=== PATIENT | female | born 1970 | race Caucasian/White ===

== ENCOUNTER 2022-03-06 22:06 | Emergency (ER) | payer BC ==
[2022-03-06] MEDS ORDERED: Mag-Al Plus 1200 MG/1200 MG/120 MG/30 ML UDCUP ONE (22:39)
[2022-03-06] MEDS ORDERED: Lidocaine Viscous Sol 2% 15 ml UD Cup ONE (22:39)
[2022-03-06 22:54] LABS: Eosinophils 1 % (0-10); Hemoglobin 15.3 g/dL (12.0-16.0); Lymphocytes 28 % (21-51); MDiff Complete? YES; Macrocytosis SLIGHT = 6-15 cells (100X) (0-5/hpf); Mean Corpuscular HGB CONC 31.8 g/dL (32.0-36.0); Mean Corpuscular Volume 106.7 fL (78.0-98.0); Monocytes 5 % (0-10); Neutrophil 65 % (42-75); Platelet Count 286 thou/uL (130-400); RBC Distribution Width 11.7 % (11.5-14.5); Reactive Lymphocytes 1 % (0-10); Red Blood Cell (RBC) Count 4.52 mill/uL (4.20-5.40); White Blood Cell (WBC) Count 9.8 thou/uL (4.8-10.8)
[2022-03-06 23:00] LABS: ALT (SGPT) 35 U/L (8-55); AST (SGOT) 34 U/L (5-34); Albumin 4.2 g/dL (3.5-5.0); Alkaline Phosphatase 94 U/L (40-110); Anion Gap 20 mmol/L (10-20); BUN (Urea Nitrogen) 10 mg/dL (9.8-20.1); Bilirubin, Total 0.3 mg/dL (0.2-1.2); CK (CPK) 171 U/L (29-168); Calc. Creatinine Clearance 0 mL/min (70-130); Calcium 9.5 mg/dL (7.8-10.44); Carbon Dioxide 21 mmol/L (22-29); Chloride 103 mmol/L (98-107); Globulin 2.8 g/dL (2.4-3.5); Glucose 161 mg/dL (70-105); Sodium 140 mmol/L (136-145)
[2022-03-06] MEDS ORDERED: Sodium Chloride 0.9% 1,000 ML ONE (23:44)
[2022-03-07] MEDS ORDERED: Ketorolac Tromethamine 30 MG/ML VIAL ONE (00:21)
[2022-03-07] MEDS ORDERED: Mag-Al Plus 1200 MG/1200 MG/120 MG/30 ML UDCUP ONE (01:22)
[2022-03-07 01:54] LABS: Troponin I Less than 0.010 ng/mL (< 0.028)
== END 2022-03-07 02:40 | disposition home or self-care (01) ==
LOC: MADERS 22:06
DX: R07.81 Pleurodynia (principal); K21.9 Gastro-esophageal reflux disease without esophagitis; F17.200 Nicotine dependence, unspecified, uncomplicated
CPT/HCPCS: 71045; 71275; 80053; 82550; 84484; 85025; 85379; 93005; 96374; J1885; J7050